=== PATIENT | female | born 1975 | race Caucasian/White ===

== ENCOUNTER 2017-09-02 12:35 | Emergency (ER) | payer MEDICAID ==
--- NOTE | 2017-09-02 15:22 | EDPHY ---
H & P Stated Complaint: fall on stairs friday impacted l flank area Time Seen by Provider: 09/02/17 14:54 HPI/ROS: CHIEF COMPLAINT: Left flank pain HISTORY OF PRESENT ILLNESS: This is a 42-year-old male who fell down 3 steps 2 days ago. While tumbling down she struck her left side and has had persistent left flank pain since that time. No overlying bruising. She denies rib pain, chest pain, pleuritic pain or difficulty breathing. She has not noted blood in her urine. However she is concerned that she could have a left kidney injury. She did not strike her head. She has no midline back pain and denies numbness or weakness. She also struck her left elbow but denies any serious injury to the arm. REVIEW OF SYSTEMS: A ten point review of systems was performed and is negative with the exception of the items mentioned in the HPI. Past medical history: 1. PTSD 2. Migraine headaches 3. Cyclic vomiting syndrome 4. Reactive airway disease. Social history: She is new to this area, having lived in [facility]. She has not yet decided whether she is going to settle in [place] or [place] and has not established care with a primary physician. General Appearance: Alert. Vital signs reviewed. Head: Normocephalic atraumatic. HEENT: CHARITY. EOMI. Neck: No lymphadenopathy. Respiratory: Lungs are clear to auscultation; no wheezes, rales, or rhonchi. Cardiovascular: Regular rate and rhythm; no murmur, rub, or gallop. Gastrointestinal: Abdomen is soft and nontender, no masses or organomegaly, bowel sounds normal. Skin: Warm and dry, no rashes on exposed skin, normal color. Back: Nontender to palpation over the thoracolumbar spine. Left CVAT. No flank bruising or swelling. Extremities: No lower extremity edema, no calf tenderness or swelling. Full active range of motion of her left upper extremity at the shoulder and elbow. Neurological: Alert and oriented. Moving all four extremities easily and equally. Gait is normal. Psychiatric: Normal affect. - Personal History LMP (Females 10-55): 1-7 Days Ago Current Tetanus/Diphtheria Vaccine: Yes - Medical/Surgical History Hx Asthma: No Hx Chronic Respiratory Disease: No Hx Diabetes: No Hx Cardiac Disease: No Hx Renal Disease: No Hx Cirrhosis: No Hx Alcoholism: No Hx HIV/AIDS: No Hx Splenectomy or Spleen Trauma: No Other PMH: cyclical vomiting/ptsd/migraines - Social History Smoking Status: Former smoker Constitutional: Initial Vital Signs Temperature (C) 36.8 C 09/02/17 12:47 Heart Rate 65 09/02/17 12:47 Respiratory Rate 16 09/02/17 12:47 Blood Pressure 99/56 L 09/02/17 12:47 O2 Sat (%) 93 09/02/17 12:47 O2 Delivery Mode Room Air Allergies/Adverse Reactions: Benzodiazepines Allergy (Verified 09/02/17 12:46) propranolol Allergy (Verified 09/02/17 12:46) opiates Allergy (Uncoded 09/02/17 12:46) Home Medications: Medication Instructions Recorded Compazine 10mg (*) 09/02/17 Relpax 09/02/17 Medical Decision Making Procedures: Procedure: Assess kidneys after fall Limited bedside ultrasound was performed and interpreted by myself for the indication of: thoracoabdominal trauma Limited abdominal ultrasound for blunt abdominal trauma. 1) The right upper quadrant was visualized and was found to be negative for intraperitoneal fluid. 2) The left upper quadrant was visualized and found to be negative for intraperitoneal fluid. The study was felt to be negative for free intraperitoneal fluid. The study was felt to be negative for free intraperitoneal fluid. ED Course/Re-evaluation: Patient is concerned about left kidney injury after falling 2 days ago. She has had persistent left flank pain. An abbreviated fast exam was performed by me. Both kidneys were visualized and appear normal, no signs of fluid or other kidney abnormality. Patient tells me that she is might be , is not using control. When asked if she wanted a test she stated yes. A urine test is negative. She has recently completed a menstrual cycle. Urinalysis is negative for blood. I feel that she can safely return home. I have not found evidence of kidney injury. I am recommending Tylenol for pain control. Differential Diagnosis: Considered a differential diagnosis that includes but is not limited to retroperitoneal injury, intra-abdominal injury, rib injury/pneumothorax, ureterolithiasis, urinary tract infection, and musculoskeletal thoracic/back injury. - Data Points Point of Care Test Results: Urine Collection Date 09/02/17 Collection Time 15:32 HCG Results Negative Departure - Departure Disposition: Home, Routine, Self-Care Clinical Impression: Left flank pain Condition: Good Instructions: Flank Pain (ED) Additional Instructions: I have not found evidence of injury to your kidney. I recommend that you take Tylenol for pain control. You can take 650 mg every 4 hr as needed for pain control. You can also take ibuprofen if you would like. Remember though that ibuprofen can affect kidney function. As stated, I have not found injury to your kidney and I think that it is likely safe for you to use this medication. Adult Pain & Fever Control: We recommend Acetaminophen (Tylenol) and Ibuprofen (Motrin,Advil) for pain and fever control. When fever is high or pain severe, both drugs can be used at the same time, but at different intervals. Please note the time differences. Your dose is: Acetaminophen 650mg every 4 to 6 hours Ibuprofen 400mg every 8 hours with food OR Note: do not take Acetaminophen with Hydrocodone (Vicodin, Lortab) or Oycodone (Percocet). These medications also contain Acetaminophen. No more than 3000mg of Acetaminophen should be taken in 24 hours (for an adult). If you find that you need a primary care physician in this area I am referring you to Dr. Angel Hughes. Referrals: Angel Hughes MD [Medical Doctor] - As per Instructions
[2017-09-02 16:12] VITALS: BP 105/69
== END 2017-09-02 16:12 | disposition home or self-care (01) ==
DX: S39.91XA Unspecified injury of abdomen, initial encounter (principal); Z87.891 Personal history of nicotine dependence; W10.9XXA Fall (on) (from) unspecified stairs and steps, initial encounter

== ENCOUNTER 2017-09-04 16:09 | Emergency (ER) | payer MEDICAID ==
--- NOTE | 2017-09-04 16:27 | EDPHY ---
H & P Time Seen by Provider: 09/04/17 16:21 HPI/ROS: Chief complaint. Flank pain HPI. 42-year-old female with fall 5 days ago. She slipped and fell on the floor striking her left flank. She was concerned about injury to kidney. She was seen in the emergency department 2 days ago where she had normal bedside ultrasound, negative test, urinalysis negative for blood. She continues to have flank pain but now has left anterior abdominal pain. She did not prior have pain in the front of her abdomen. She has nausea but no vomiting or diarrhea. Somewhat dizzy. No urinary symptoms. No chest discomfort or pain or shortness of breath. ROS Constitutional. no fever/chills, no weakness Eyes. no problems with vision ENT. no sore throat, no nasal drainage Cardiovascular. no chest pain Respiratory. no shortness of breath, no cough no fever Abdominal. Left flank and left abdominal pain with nausea . no problems urinating MS. no calf pain/swelling, no neck/back pain, no joint pain Skin. no rash Lymph. no swollen glands Neuro. no headache, no dizziness, no difficulty walking or with speech Past Medical/Surgical History: PTSD, migraines, cyclic vomiting syndrome, reactive airway disease Social History: Single, nonsmoker, no alcohol Smoking Status: Former smoker Physical Exam: General Appearance: Alert well-developed female mild distress vital signs are stable Eyes: Pupils equal and round no pallor or injection. ENT, Mouth: Mucous membranes are moist. Respiratory: There are no retractions, lungs are clear to auscultation. Cardiovascular: Regular rate and rhythm. Gastrointestinal: Abdomen has tenderness in the left mid abdomen. Also left flank. No obvious surface trauma Neurological: Awake and alert, sensory and motor exams grossly normal. Skin: Warm and dry, no rashes. Musculoskeletal: Neck is supple nontender. Extremities symmetrical, full range of motion. Psychiatric: Patient is oriented X 3, there is no agitation. Constitutional: Initial Vital Signs Temperature (C) 36.8 C 09/04/17 16:11 Heart Rate 74 09/04/17 16:11 Respiratory Rate 16 09/04/17 16:11 Blood Pressure 106/63 09/04/17 16:11 O2 Sat (%) 95 09/04/17 16:11 O2 Delivery Mode Room Air Allergies/Adverse Reactions: Benzodiazepines Allergy (Verified 09/02/17 12:46) propranolol Allergy (Verified 09/02/17 12:46) opiates Allergy (Uncoded 09/02/17 12:46) Home Medications: Medication Instructions Recorded Compazine 10mg (*) 09/02/17 Relpax 09/02/17 Medical Decision Making - Diagnostics Imaging Results: Imaging Impressions Abdomen CT 09/04/17 16:40 Impression: 1. No evidence of organ injury within the abdomen or pelvis. 2. Nondisplaced fracture involving the rudimentary rib left L1 segment. No additional osseous abnormality seen. 3. Incidental follicular cyst left adnexa. Findings discussed with Reji Burns M.D. at 18:11 hour, 09/04/2017. CT reviewed by me and discussed with Dr. Campa shows a nondisplaced fracture a rudimentary rib left L1. Incidental finding of follicular cyst left adnexa. However spleen and left kidney appear normal Procedures: IV normal saline ED Course/Re-evaluation: Re-evaluation 6:20 p.m.. Patient is stable. She and I discussed imaging and lab results. We discussed treatment plan including criteria for return importance of follow-up and further evaluation. She expresses understanding and agreement Differential Diagnosis: I considered intra-abdominal injury including spleen and kidney injury. I considered spine as well as intestinal injury. - Data Points Laboratory Results: Laboratory Results 09/04/17 17:00 09/04/17 17:00 09/04/17 09/04/17 17:00 17:00 WBC 12.93 10^3/uL H 10^3/uL (3.80-9.50) RBC 4.61 10^6/uL 10^6/uL (4.18-5.33) Hgb 14.1 g/dL g/dL (12.6-16.3) Hct 41.5 % % (38.0-47.0) MCV 90.0 fL fL (81.5-99.8) MCH 30.6 pg pg (27.9-34.1) MCHC 34.0 g/dL g/dL (32.4-36.7) RDW 12.8 % % (11.5-15.2) Plt Count 220 10^3/uL 10^3/uL (150-400) MPV 11.3 fL fL (8.7-11.7) Neut % (Auto) 53.8 % % (39.3-74.2) Lymph % (Auto) 36.2 % % (15.0-45.0) [place] % (Auto) 5.2 % % (4.5-13.0) Eos % (Auto) 3.8 % % (0.6-7.6) Baso % (Auto) 0.5 % % (0.3-1.7) Nucleat RBC Rel Count 0.0 % % (0.0-0.2) Absolute Neuts (auto) 6.96 10^3/uL H 10^3/uL (1.70-6.50) Absolute Lymphs (auto) 4.68 10^3/uL H 10^3/uL (1.00-3.00) Absolute Monos (auto) 0.67 10^3/uL 10^3/uL (0.30-0.80) Absolute Eos (auto) 0.49 10^3/uL H 10^3/uL (0.03-0.40) Absolute Basos (auto) 0.06 10^3/uL 10^3/uL (0.02-0.10) Absolute Nucleated RBC 0.00 10^3/uL 10^3/uL (0-0.01) Immature Gran % 0.5 % % (0.0-1.1) Immature Gran # 0.06 10^3/uL 10^3/uL (0.00-0.10) RBC/WBC/PLT Morphology TNP Platelet Estimate TNP Sodium 140 mEq/L mEq/L (135-145) Potassium 4.7 mEq/L mEq/L (3.3-5.0) Chloride 101 mEq/L mEq/L (97-110) Carbon Dioxide 25 mEq/l mEq/l (22-31) Anion Gap 14 mEq/L mEq/L (8-16) BUN 17 mg/dL mg/dL (7-23) Creatinine 0.9 mg/dL mg/dL (0.6-1.0) Estimated GFR > 60 Glucose 89 mg/dL mg/dL (70-100) Calcium 9.4 mg/dL mg/dL (8.5-10.4) Medications Given: Discontinued Medications Sodium Chloride (Ns) 1,000 mls @ 0 mls/hr IV ONCE ONE; Wide Open PRN Reason: Protocol Stop: 09/04/17 16:41 Last Admin: 09/04/17 17:01 Dose: 1,000 mls Departure - Departure Disposition: Home, Routine, Self-Care Clinical Impression: Rib fracture Qualifiers: Encounter type: initial encounter Rib fracture type: single rib Fracture type: closed Laterality: left Qualified Code(s): S22.32XA - Fracture of one rib, left side, initial encounter for closed fracture Ovarian cyst Qualifiers: Laterality: left Qualified Code(s): N83.202 - Unspecified ovarian cyst, left side Condition: Good Instructions: Ovarian Cyst (ED), Rib Fracture (ED) Additional Instructions: Heat to sore areas of left-sided abdomen and left back. Ibuprofen 4-600 mg every 6 hr for discomfort. Tylenol 650 mg every 4-6 hours for discomfort. Activity as tolerated. Re-evaluation if not improving in 3-4 days Referrals: NONE *PRIMARY CARE P,. [Primary Care Provider] - As per Instructions
[2017-09-04] MEDS ORDERED: NS 1,000 ML IV ONE (16:40)
[2017-09-04 17:16] LABS: PLATELET COUNT 220 10^3/uL (150-400)
[2017-09-04] MEDS ORDERED: IOPAMIDOL (ISOVUE-300) 100 ML BTL ONE (17:39)
[2017-09-04 18:57] VITALS: BP 103/63
== END 2017-09-04 18:58 | disposition home or self-care (01) ==
DX: S22.32XA Fracture of one rib, left side, initial encounter for closed fracture (principal); N83.202 Unspecified ovarian cyst, left side; E86.9 Volume depletion, unspecified; J45.909 Unspecified asthma, uncomplicated; Z87.891 Personal history of nicotine dependence; W01.198A Fall on same level from slipping, tripping and stumbling with subsequent striking against other object, initial encounter
CPT/HCPCS: Q9967

== ENCOUNTER 2018-01-08 09:48 | Emergency (ER) | payer MEDICAID ==
--- NOTE | 2018-01-08 09:55 | EDPHY ---
H & P Stated Complaint: pantoja/nausea/hx migraines rx relpax not working Time Seen by Provider: 01/08/18 09:54 HPI/ROS: CHIEF COMPLAINT: Headache, nausea, vomiting HISTORY OF PRESENT ILLNESS: The patient presents the ED with a 2 day history of headache, nausea and vomiting. The patient does have a history of migraine headaches but states that this headache does feel somewhat different. She reportedly is currently having a very stressful domestic situation and had to contact the police for restraining order against 1 of her roommates yesterday. The patient has been taking Relpax at home without improvement of her symptoms. The patient denies any acute numbness or weakness. She denies any history of fall or trauma. She denies any additional infectious symptoms. REVIEW OF SYSTEMS: A comprehensive 10 point review of systems is otherwise negative aside from elements mentioned in the history of present illness. Source: Patient Exam Limitations: No limitations - Personal History LMP (Females 10-55): 8-14 Days Ago Current Tetanus Diphtheria and Acellular Pertussis (TDAP): Yes - Medical/Surgical History Hx Asthma: No Hx Chronic Respiratory Disease: No Hx Diabetes: No Hx Cardiac Disease: No Hx Renal Disease: No Hx Cirrhosis: No Hx Alcoholism: No Hx HIV/AIDS: No Hx Splenectomy or Spleen Trauma: No Other PMH: cyclical vomiting/ptsd/migraines - Social History Smoking Status: Former smoker - Physical Exam Exam: General Appearance: Alert, no distress Head: Atraumatic Eyes: Pupils equal, round, reactive ENT, Mouth: No hemotympanum, no oral trauma Neck: Nontender, trachea midline Respiratory: No chest wall tender, subcutaneous air, lungs clear bilaterally Cardiovascular: Regular rate and rhythm Abdomen: Abdomen is soft and nontender, pelvis stable Skin: No lacerations, No abrasion Back: No midline T/L/S pain Extremities: Nontender, full range of motion Neurological: A&Ox3, normal motor function, normal sensory exam Constitutional: Initial Vital Signs Temperature (C) 36.8 C 01/08/18 09:50 Heart Rate 67 01/08/18 09:50 Respiratory Rate 18 01/08/18 09:50 Blood Pressure 117/77 01/08/18 09:50 O2 Sat (%) 96 01/08/18 09:50 O2 Delivery Mode Room Air Allergies/Adverse Reactions: Benzodiazepines Allergy (Verified 01/08/18 09:50) propranolol Allergy (Verified 01/08/18 09:50) opiates Allergy (Uncoded 09/02/17 12:46) Home Medications: Medication Instructions Recorded Compazine 10mg (*) 09/02/17 Relpax 09/02/17 Medical Decision Making - Diagnostics Imaging Results: Imaging Impressions Head CT 01/08/18 10:36 Impression: No acute intracranial process. Findings and recommendations discussed with Porfirio Plata at [facility], 2017. ED Course/Re-evaluation: The patient arrives and is neurologically intact. She has no evidence of meningeal symptoms. Her blood pressure and heart rate are normal. The patient had an IV established. She was treated with Reglan, Toradol and Benadryl. I re-evaluated the patient at 10:00 a.m.. She reported minimal improvement of her symptoms. She stated her headache is somewhat atypical in the sense that it feels more occipital at this point time. Given that this is not her typical migraine she was sent for a CT scan of the head which demonstrated no evidence of an acute intracranial process. The patient was treated additionally with Decadron. I re-evaluated the patient at 12:15 p.m.. She reports her symptoms have entirely resolved. She denies any acute numbness or weakness. She denies additional acute complaints and would like to be discharged home. Differential Diagnosis: Differential diagnosis considered includes tension headache, migraine headache, occipital neuralgia, intracranial hemorrhage, [employer] tumor - Data Points Laboratory Results: Laboratory Results 01/08/18 10:02 01/08/18 10:02 01/08/18 01/08/18 01/08/18 10:02 10:02 10:02 WBC 9.88 10^3/uL H 10^3/uL (3.80-9.50) RBC 4.75 10^6/uL 10^6/uL (4.18-5.33) Hgb 14.3 g/dL g/dL (12.6-16.3) Hct 42.5 % % (38.0-47.0) MCV 89.5 fL fL (81.5-99.8) MCH 30.1 pg pg (27.9-34.1) MCHC 33.6 g/dL g/dL (32.4-36.7) RDW 12.9 % % (11.5-15.2) Plt Count 200 10^3/uL 10^3/uL (150-400) MPV 11.6 fL fL (8.7-11.7) Neut % (Auto) 59.0 % % (39.3-74.2) Lymph % (Auto) 31.4 % % (15.0-45.0) [place] % (Auto) 5.2 % % (4.5-13.0) Eos % (Auto) 3.7 % % (0.6-7.6) Baso % (Auto) 0.3 % % (0.3-1.7) Nucleat RBC Rel Count 0.0 % % (0.0-0.2) Absolute Neuts (auto) 5.83 10^3/uL 10^3/uL (1.70-6.50) Absolute Lymphs (auto) 3.10 10^3/uL H 10^3/uL (1.00-3.00) Absolute Monos (auto) 0.51 10^3/uL 10^3/uL (0.30-0.80) Absolute Eos (auto) 0.37 10^3/uL 10^3/uL (0.03-0.40) Absolute Basos (auto) 0.03 10^3/uL 10^3/uL (0.02-0.10) Absolute Nucleated RBC 0.00 10^3/uL 10^3/uL (0-0.01) Immature Gran % 0.4 % % (0.0-1.1) Immature Gran # 0.04 10^3/uL 10^3/uL (0.00-0.10) Sodium 139 mEq/L mEq/L (135-145) Potassium 4.1 mEq/L mEq/L (3.3-5.0) Chloride 106 mEq/L mEq/L (97-110) Carbon Dioxide 22 mEq/l mEq/l (22-31) Anion Gap 11 mEq/L mEq/L (6-14) BUN 17 mg/dL mg/dL (7-23) Creatinine 1.0 mg/dL mg/dL (0.6-1.0) Estimated GFR > 60 Glucose 96 mg/dL mg/dL (70-100) Calcium 9.4 mg/dL mg/dL (8.5-10.4) Beta HCG, Qual NEGATIVE Medications Given: Discontinued Medications Dexamethasone (Decadron Injection) 10 mg IVP EDNOW ONE Stop: 01/08/18 10:37 Last Admin: 01/08/18 10:43 Dose: 10 mg Diphenhydramine HCl (Benadryl Injection) 50 mg IVP EDNOW ONE Stop: 01/08/18 10:00 Last Admin: 01/08/18 10:08 Dose: 50 mg Sodium Chloride (Ns) 1,000 mls @ 0 mls/hr IV ONCE ONE; Wide Open PRN Reason: Protocol Stop: 01/08/18 10:00 Last Admin: 01/08/18 10:04 Dose: 1,000 mls Ketorolac Tromethamine (Toradol) 30 mg IVP EDNOW ONE Stop: 01/08/18 10:00 Last Admin: 01/08/18 10:08 Dose: 30 mg Metoclopramide HCl (Reglan Injection) 10 mg IVP EDNOW ONE Stop: 01/08/18 10:00 Last Admin: 01/08/18 10:08 Dose: 10 mg Departure - Departure Disposition: Home, Routine, Self-Care Clinical Impression: Acute headache Condition: Good Instructions: Acute Headache (ED) Additional Instructions: 1. Please return to the ED immediately for any recurrent severe headache, numbness, weakness, fever, neck stiffness or other concerns. 2. You have been given the contact number of our on-call neurologist if you would like further evaluation as an outpatient. Referrals: Socrates Cronin DO [Medical Doctor] - As per Instructions
[2018-01-08] MEDS ORDERED: KETOROLAC 30 MG/1 ML SDV IVP ONE (09:59)
[2018-01-08] MEDS ORDERED: NS 1,000 ML IV ONE (09:59)
[2018-01-08] MEDS ORDERED: METOCLOPRAMIDE 10 MG/2 ML VIAL IVP ONE (09:59)
[2018-01-08] MEDS ORDERED: DEXAMETHASONE 10 MG/ML VIAL IVP ONE (10:36)
[2018-01-08] MEDS ORDERED: DEXAMETHASONE 4 MG/ML VIAL ONE (10:42)
[2018-01-08 11:04] LABS: PLATELET COUNT 200 10^3/uL (150-400)
[2018-01-08 12:36] VITALS: BP 102/52
== END 2018-01-08 12:36 | disposition home or self-care (01) ==
DX: R51 Headache (principal); E86.9 Volume depletion, unspecified
CPT/HCPCS: 96374; J1100; J1200; J1885; J2765

== ENCOUNTER 2018-04-20 11:28 | Emergency (ER) | payer MEDICAID ==
[2018-04-20] MEDS ORDERED: NS 1,000 ML IV ONE (12:21)
[2018-04-20] MEDS ORDERED: ONDANSETRON 4 MG/2 ML VIAL IVP ONE (12:21)
[2018-04-20] MEDS ORDERED: ACETAMINOPHEN 500 MG TAB PO ONE (12:24)
--- NOTE | 2018-04-20 12:31 | EDPHY ---
General Time Seen by Provider: 04/20/18 11:47 Narrative: CLINICAL IMPRESSION: Influenza a ASSESSMENT/PLAN: 42-year-old female presents to the emergency department with 3 days of body aches, subjective high fevers, fatigue, malaise, nausea and vomiting. Vital signs stable on arrival, she appears dehydrated and generally ill appearing. She received a L of fluids, laboratory evaluation and urine studies all of which were reassuring aside from a positive influenza A diagnosis. No hypoxia, respiratory distress or clinical suggestion of underlying pulmonary disease. She admitted to feeling much better after Tylenol and was able to tolerate water. She has Compazine at home to use for nausea. I explained that she is out of the window to try Tamiflu. She will plan to rest at home, work note provided, follow up with PCP, warning signs return to ED sooner outlined in discharge. DIFFERENTIAL DX: Differential diagnosis includes but not limited to viral URI, influenza, influenza like syndrome, bacterial URI, acute surgical abdomen, dehydration, UTI , pyelonephritis, electrolyte imbalance ED PROCEDURES: See lab and/or imaging results below CHIEF COMPLAINT: Body aches, high fevers HPI: A 42-year-old female presents to the emergency department with 3 days of generalized body aches, subjective high fevers, "organ pain", and fatigue. She also feels she may have a UTI as she has had some increased frequency. No flank pain. She has been nauseous and vomiting. No diarrhea. She did not get a flu shot this year. No underlying cardiopulmonary disease. No reported severe cough or shortness of breath. She was diagnosed with Ebstein Zhao virus several months ago PAST MEDICAL HISTORY: Cyclic vomiting syndrome See triage summary and nurse notes for addition applicable history Pertinent Past Surgical History: None reported Family History: Noncontributory Social History: Nonsmoker, does not drink alcohol, smokes marijuana REVIEW OF SYSTEMS: A full 10 point review of systems was negative except for those mentioned in HPI. PHYSICAL EXAM: General Appearance: Alert, oriented, appropriate, cooperative, appears uncomfortable well hydrated, non-toxic appearing, VSS, no hypoxia. HEENT: TMs are clear bilaterally no perforation or FB, no injection, no evidence of serous or mucopurulent otitis. Oropharynx dry mucous membranes no tonsillar hypertrophy or asymmetry. Dentition without abnormality. Eyes: PERRLA, no acute vision change, nystagmus, swelling, discharge, pain or photosensitivity. Conjunctiva pink, no pallor or injection Neck: Supple, nontender, no lymphadenopathy, no midline pain, FROM, no meningismus. Respiratory: There are no retractions, lungs are clear to auscultation. Cardiac: Regular rate and rhythm, no murmurs or gallops. Gastrointestinal: Abdomen is soft, nontender, bowel sounds normal, no masses/ hernia, no rigidity, guarding or focal peritoneal findings. Skin: Warm, dry, no rashes, no nodules on palpation. MEDICAL DECISION MAKING: Patient was seen independently. Secondary supervising physician at time of evaluation was: Dr. Alas . Diagnosis: Influenza a . New, requires workup Summary: See Assessment and Plan for summary of ED visit Clinical lab tests: ordered / reviewed. Independent visualization of images, tracing, or specimens: Yes. Patient Progress: Improved. - History Smoking Status: Former smoker - Objective Vital Signs: Initial Vital Signs Temperature (C) 37 C 04/20/18 11:38 Heart Rate 80 04/20/18 11:38 Respiratory Rate 17 04/20/18 11:38 Blood Pressure 113/76 04/20/18 11:38 O2 Sat (%) 94 04/20/18 11:38 O2 Delivery Mode Room Air Allergies/Adverse Reactions: Benzodiazepines Allergy (Verified 04/20/18 11:37) propranolol Allergy (Verified 04/20/18 11:37) opiates Allergy (Uncoded 09/02/17 12:46) Home Medications: Medication Instructions Recorded Compazine 10mg (*) 09/02/17 Relpax 09/02/17 Laboratory Results: Laboratory Results 04/20/18 12:45 04/20/18 12:45 Medications Given: Discontinued Medications Acetaminophen (Tylenol) 1,000 mg PO EDNOW ONE Stop: 04/20/18 12:25 Last Admin: 04/20/18 12:43 Dose: 1,000 mg Sodium Chloride (Ns) 1,000 mls @ 0 mls/hr IV EDNOW ONE; Wide Open PRN Reason: Protocol Stop: 04/20/18 12:22 Last Admin: 04/20/18 12:44 Dose: 1,000 mls Ondansetron HCl (Zofran) 4 mg IVP EDNOW ONE Stop: 04/20/18 12:22 Last Admin: 04/20/18 12:43 Dose: 4 mg Departure - Departure Disposition: Home, Routine, Self-Care Clinical Impression: Influenza A Condition: Good Instructions: Influenza (ED) Additional Instructions: DISCHARGE INSTRUCTIONS FROM YOUR DOCTOR Thank you for visiting our emergency department today. Please keep in mind that discharge from the emergency department does not mean that there is nothing wrong - it simply means that we have not identified an emergency condition that requires further evaluation or treatment in the hospital. You should always plan to follow up with primary care for re-evaluation of your condition in the next 2-3 days. If you have been referred to a specialist, please call as soon as possible (today or tomorrow) to schedule your follow up appointment at the appropriate time. LAB EVALUATION IN THE EMERGENCY DEPARTMENT REVEALED THAT YOU HAVE INFLUENZA A. THE REMAINDER OF HER LAB AND URINE STUDIES ARE NORMAL. PLEASE STAY WELL HYDRATED, USE TYLENOL AND IBUPROFEN FOR FEVER BODY ACHES, FOLLOW UP WITH A PRIMARY CARE PROVIDER. RETURN TO THE EMERGENCY DEPARTMENT FOR WORSENING SYMPTOMS, HIGH FEVERS, SHORTNESS OF BREATH, SEVERE COUGH, OR ANY OTHER CONCERNS. People present with illnesses and injuries in different ways, and it is always possible that we have missed something. You may always return for re-evaluation if symptoms worsen or if they are not improving or if you develop new/different symptoms. Again, thank you for choosing our emergency department. We hope that you feel better.. Referrals: NONE *PRIMARY CARE P,. [Primary Care Provider] - As per Instructions [facility],. [Clinic] - 2-3 days, call for appt. Stand Alone Forms: Work Excuse
[2018-04-20 12:58] LABS: PLATELET COUNT 141 10^3/uL (150-400)
[2018-04-20 14:39] VITALS: BP 103/68
== END 2018-04-20 14:38 | disposition home or self-care (01) ==
DX: J10.1 Influenza due to other identified influenza virus with other respiratory manifestations (principal); E86.9 Volume depletion, unspecified
CPT/HCPCS: 96374; J2405